=== PATIENT | male | born 1990 | race Caucasian/White ===

== ENCOUNTER 2016-12-30 17:45 | Emergency (ER) | payer OTHER ==
[2016-12-30 17:51] VITALS: BP 158/98
--- NOTE | 2016-12-30 18:20 | XRAY Preliminary Report ---
Exam: XR Ankle 3 View RT IMPRESSION: 1. Small avulsion fracture arising from either the tip of the lateral malleolus or the lateral aspect of the talus. 2. Ankle effusion. [facility] SITE ID: [id number]
--- NOTE | 2016-12-30 18:23 | XRAY Report ---
EXAM: RIGHT ANKLE RADIOGRAPHY EXAM DATE: 12/30/2016 06:09 PM. CLINICAL HISTORY: Injury. Lateral right ankle pain and swelling. COMPARISON: None. TECHNIQUE: 3 views. FINDINGS: Bones: Small avulsion fracture fragment projecting between the tip of the lateral malleolus and the t alus. The donor site is not seen. Joints: Normal alignment. The ankle mortise is symmetric. Tibiotalar joint effusion is present. Soft Tissues: Lateral soft tissue swelling. IMPRESSION: 1. Small avulsion fracture arising from either the tip of the lateral malleolus or the lateral aspect of the talus. 2. Ankle effusion. [facility] Referring Provider Line: [phone] SITE ID: [id number]
--- NOTE | 2016-12-30 18:54 | ED Physician Documentation ---
PD HPI LOWER EXT INJURY - Stated complaint Stated Complaint: RT ANKLE PX - Chief complaint Chief Complaint: Ext Problem - History obtained from History obtained from: Patient, Family - History of Present Illness PD HPI LOW EXT INJURY LOCATION: Right, Ankle Type of injury: Other (last night) Where injury occurred: [place] Timing - onset: Last night Timing - duration: Days (1) Timing - details: Abrupt onset Pain level max: 8 Pain level now: 4 Improved by: Rest, Ice, Immobilization Worsened by: Moving, Palpating Associated symptoms: Swelling. No: Weakness, Numbness, Tingling Similar symptoms before: Has not had sx before Recently seen: Not recently seen Review of Systems Constitutional: denies: Fever, Chills GI: denies: Nausea, Vomiting, Diarrhea Skin: denies: Rash Musculoskeletal: denies: Neck pain, Back pain Neurologic: denies: Headache PD PAST MEDICAL HISTORY - Past Medical History Past Medical History: No - Past Surgical History Past Surgical History: Yes - Present Medications Home Medications: Ambulatory Orders Medication Instructions Recorded Confirmed No Known Home Medications [No 12/30/16 12/30/16 Known Home Medications] - Allergies Allergies/Adverse Reactions: Allergies Allergy/AdvReac Type Severity Reaction Status Date / Time No Known Drug Allergies Allergy Verified 12/30/16 17:51 - Social History Does the pt smoke?: No Smoking Status: Never smoker Does the pt drink ETOH?: Yes ETOH Use: Beer, Liquor Does the pt have substance abuse?: No - Immunizations Immunizations are current?: Yes - POLST Patient has POLST: No PD ED PE NORMAL - Vitals Vital signs reviewed: Yes - General General: Alert and oriented X 3, No acute distress - Derm Derm: Warm and dry - Extremities Extremities: Other (Right ankle is moderately swollen. Tenderness palpation over the lateral malleolus with ecchymosis present. No tenderness over the base of the fifth metatarsal. Neurovascularly intact. Otherwise normal examination of the right lower extremity and foot.) - Neuro Neuro: Alert and oriented X 3 - Psych Psych: Normal mood, Normal affect Results - Vitals Vitals: Vital Signs - 24 hr 12/30/16 17:49 Temperature 36.6 C Heart Rate 98 Respiratory 16 Rate Blood Pressure 158/98 H O2 Saturation 98 Oxygen O2 Source Room air - Rads (name of study) Right ankle x-ray Radiology: Prelim report reviewed, EMP read contemporaneously, See rad report ( Small avulsion fracture arising from either the tip of the lateral malleolus or the lateral aspect of the talus. Ankle effusion. ) Procedures - Splint (location) R ankle Splint applied by: Physician, Royce Type of splint: Fiberglass, Short leg, Posterior Other: Patient tolerated well, No complications, Neurovascular intact, Crutches provided PD MEDICAL DECISION MAKING - ED course Complexity details: reviewed results, re-evaluated patient, considered differential, d/w patient, d/w family ED course: Patient with a right lateral malleolus fracture versus a talus fracture. There is is a small avulsion fracture. Placed in a short leg posterior splint and given crutches. Declines pain medication here or for home. Neurovascularly intact. Patient counseled regarding signs and symptoms for which I believe and urgent re-evaluation would be necessary. Patient with good understanding of and agreement to plan and is comfortable going home at this time This document was made in part using voice recognition software. While efforts are made to proofread this document, sound alike and grammatical errors may occur. Departure - Departure Disposition: 01 Home, Self Care Clinical Impression: Fracture of malleolus of right ankle Qualifiers: Encounter type: initial encounter Fracture type: closed Qualified Code(s): S82.891A - Other fracture of right lower leg, initial encounter for closed fracture Condition: Good Instructions: ED Splint Care Drew, ED Fx Lower Ext Follow-Up: VIELKA COPPOLA [Primary Care Provider] - Within 1 week Comments: [place] Keep the splint clean and dry. Discharge Date/Time: 12/30/16 19:07
== END 2016-12-30 19:07 | disposition home or self-care (01) ==
LOC: ED 17:45
DX: S82.61XA Displaced fracture of lateral malleolus of right fibula, initial encounter for closed fracture (principal); X50.0XXA Overexertion from strenuous movement or load, initial encounter; Y92.830 Public park as the place of occurrence of the external cause; M25.471 Effusion, right ankle
CPT/HCPCS: 29515; 99283

== ENCOUNTER 2017-01-12 23:03 | Emergency (ER) | payer OTHER ==
[2017-01-13] MEDS ORDERED: SULFAMETH/TRIMETH DS 800/160 MG TABLET PO STA (00:15)
[2017-01-13] MEDS ORDERED: SULFAMETH/TRIMETH DS 800/160 MG TABLET PO ONE (00:18)
--- NOTE | 2017-01-13 00:24 | ED Physician Documentation ---
PD HPI LOWER EXT INJURY - Stated complaint Stated Complaint: R FOOT TINGLING - Chief complaint Chief Complaint: Ext Problem - History obtained from History obtained from: Patient, Family - History of Present Illness PD HPI LOW EXT INJURY LOCATION: Right, Ankle, Foot Type of injury: Fall, Twist Where injury occurred: [place] Timing - onset: How many weeks ago (2) Timing - duration: Weeks (2) Timing - details: Abrupt onset, Still present Improved by: Rest, Immobilization Worsened by: Moving, Palpating Associated symptoms: Tingling, Swelling, Discolored Contributing factors: No: Anticoagulated Similar symptoms before: Has not had sx before Recently seen: Emergency Dept - Additional information Additional information: 26-year-old male was playing football 2 weeks ago when he fell twisting his right ankle he had a lot of swelling associated with this was seen in the emergency department diagnosed with a fracture of either the talus or the distal fibula. He has a small fragment of bone overlying the distal fibula. He had a lot of swelling associated with this and was initially placed into a posterior splint [place] walking boot. He has not been bearing weight on this and tonight he comes into the emergency department with the complaint of continued pain in the foot and swelling with some redness in the top of the foot.He does bring in a photograph of the foot the day after this happened there is significant amount of ecchymosis and and significant swelling as well. Entire foot was swollen. Review of Systems Constitutional: reports: Fatigue. denies: Fever, Chills Respiratory: denies: Dyspnea, Cough GI: denies: Vomiting Musculoskeletal: reports: Extremity pain, Joint pain, Extremity swelling, Joint swelling, Pain with weight bearing Neurologic: reports: Numbness. denies: Generalized weakness, Focal weakness PD PAST MEDICAL HISTORY - Past Medical History Past Medical History: Yes - Past Surgical History Past Surgical History: Yes - Present Medications Home Medications: Ambulatory Orders Medication Instructions Recorded Confirmed Ibuprofen 1 tab PO Q6HR PRN 01/12/17 01/12/17 Sulfamethoxazole/Trimethoprim 1 each PO BID #10 tablet 01/13/17 [Sulfamethoxazole-Tmp Ds Tablet] - Allergies Allergies/Adverse Reactions: Allergies Allergy/AdvReac Type Severity Reaction Status Date / Time No Known Drug Allergies Allergy Verified 01/12/17 23:08 - Social History Does the pt smoke?: No Smoking Status: Never smoker Does the pt drink ETOH?: Yes Does the pt have substance abuse?: No - Immunizations Immunizations are current?: Yes - POLST Patient has POLST: No PD ED PE NORMAL - Vitals Vital signs reviewed: Yes (Tachycardic and hypertensive) - General General: No acute distress, Well developed/nourished - HEENT HEENT: Atraumatic, PERRL - Respiratory Respiratory: No respiratory distress - Derm Derm: Normal color, Warm and dry, No rash - Extremities Extremities: Other (The foot is in a walking boot and this is removed and it is evident immediately that there is an area of the foot that has some erythema associated with it and swelling consistent with cellulitis. The conti on the foot are consistent with compression of swelling Anastacia ridge of tissue where there is no compression by the boot. Surrounding this area there is erythema and tenderness the erythema blanches easily and the area appears consistent with a superficial infection.) - Neuro Neuro: No motor deficit, No sensory deficit - Psych Psych: Normal mood, Normal affect Results - Vitals Vitals: Vital Signs - 24 hr 01/12/17 01/13/17 23:10 00:29 Temperature 36.7 C 36.3 C L Heart Rate 113 H 98 Respiratory 16 15 Rate Blood Pressure 140/90 H 139/98 H O2 Saturation 97 97 Oxygen O2 Source Room air Procedures - Splint (location) Right ankle Splint applied by: Tech Type of splint: Ankle airsplint Other: Patient tolerated well, No complications, Neurovascular intact, Good alignment PD MEDICAL DECISION MAKING - ED course Complexity details: reviewed old records, reviewed results, re-evaluated patient , considered differential, d/w patient, d/w family ED course: 26-year-old male with an ankle fracture has what appears to have a tight fitting orthopedic appliance and after reviewing the photographs of the patient' s swollen foot I suspect that the amount of swelling is to blame and not the splint itself. The boot is removed and he is placed into an ankle stirrup gel cast. I have instructed the patient to keep the foot elevated and keep pressure off the area where the erythema is. He is administered Septra DS orally in the emergency department and I have recommended he follow-up with orthopedics this week for further evaluation. He is instructed that the redness to the dorsum of the foot should resolve relatively rapidly within the next 2-3 days. Departure - Departure Disposition: 01 Home, Self Care Clinical Impression: Fracture of malleolus of right ankle Qualifiers: Encounter type: initial encounter Fracture type: closed Qualified Code(s): S82.891A - Other fracture of right lower leg, initial encounter for closed fracture Condition: Stable Instructions: ED Fx Ankle Lateral Malleolus Follow-Up: VIELKA COPPOLA [Primary Care Provider] - [facility] [Provider Group] Prescriptions: Sulfamethoxazole/Trimethoprim [Sulfamethoxazole-Tmp Ds Tablet] 1 each PO BID # 10 tablet Comments: Wear the ankle stirrup 30/01 and use the crutches. There was a lot of swelling with this fracture and the skin to the top of the foot has been compromised. Keep pressure off of this area and use a warm compress to the area 2-3 times per day to encourage blood flow to the skin. Expect the redness and swelling to resolve relatively rapidly in the next 2-3 days. Follow up with the orthopedic doctors across the street early next week for re-evaluation.
[2017-01-13 00:30] VITALS: BP 139/98
== END 2017-01-13 00:52 | disposition home or self-care (01) ==
LOC: ED 23:03
DX: S82.891A Other fracture of right lower leg, initial encounter for closed fracture (principal); X50.1XXA Overexertion from prolonged static or awkward postures, initial encounter; Y93.61 Activity, american tackle football
CPT/HCPCS: 99283; A9270